=== PATIENT | male | born 1995 | race Caucasian/White ===

== ENCOUNTER 2017-06-13 17:16 | Emergency (ER) | payer OTHER ==
[2017-06-13] MEDS ORDERED: Bacitracin Oint 1 GM U/D Packet TOP ONE (18:21)
--- NOTE | 2017-06-13 18:45 | EDM.PDOC ---
ED HPI GENERAL MEDICAL PROBLEM - General Chief Complaint: Laceration Stated Complaint: LEFT BIG TOE Time Seen by Provider: 06/13/17 18:33 Source of Information: Reports: Patient, RN, RN Notes Reviewed History Limitations: Reports: No Limitations - History of Present Illness INITIAL COMMENTS - FREE TEXT/NARRATIVE: Pt presents to ER with c/o a laceration to the lateral pad to the left great toe. He states that at 0300 today he stepped on a piece of glass. He states he has been walking on the side of his foot. He states it does not feel like there is anything left in it. Patient states he had several vaccinations when entering the [employer] last year, which he believes included tetanus. Onset: Today, Sudden Onset Time: 03:00 Severity: Mild Improves with: Reports: None Worsens with: Reports: None Associated Symptoms: Reports: No Other Symptoms Left 1-Hallux Pain Score (Numeric/FACES): 5 - Related Data Allergies Allergy/AdvReac Type Severity Reaction Status Date / Time No Known Allergies Allergy Verified 08/06/13 00:48 Home Meds: Home Meds Albuterol [Proair HFA] 2 puff INH Q4HR PRN #1 inhaler 08/06/13 [Rx] Azithromycin [Zithromax] 250 mg PO DAILY 06/13/17 [History] predniSONE [predniSONE] 20 mg PO DAILY 06/13/17 [History] Past Medical History - Past Surgical History HEENT Surgical History: Reports: Tonsillectomy Social & Family History - Tobacco Use Smoking Status *Q: Never Smoker Second Hand Smoke Exposure: No - Caffeine Use Caffeine Use: Reports: Coffee, Energy Drinks, Tea - Alcohol Use Days Per Week of Alcohol Use: 1 Number of Drinks Per Day: 6 Total Drinks Per Week: 6 - Recreational Drug Use Recreational Drug Use: No ED ROS GENERAL - Review of Systems Review Of Systems: ROS reveals no pertinent complaints other than HPI. ED EXAM, SKIN/RASH Exam: See Below Exam Limited By: No Limitations General Appearance: Alert, WD/WN, No Apparent Distress Eye Exam: Bilateral Eye: Normal Inspection Ears: Normal External Exam, Hearing Grossly Normal Throat/Mouth: Normal Inspection, Normal Voice, No Airway Compromise Head: Atraumatic, Normocephalic Neck: Normal Inspection, Supple, Non-Tender, Full Range of Motion Respiratory/Chest: No Respiratory Distress, Lungs Clear, Normal Breath Sounds, No Accessory Muscle Use, Chest Non-Tender Cardiovascular: Normal Peripheral Pulses, Regular Rate, Rhythm, No Edema, No Gallop, No JVD, No Murmur, No Rub Peripheral Pulses: 2+: Radial (L), Radial (R), Dorsalis Pedis (L) GI/Abdominal: Normal Bowel Sounds, Soft, Non-Tender (Male) Exam: Deferred Rectal (Males) Exam: Deferred Back Exam: Normal Inspection, Full Range of Motion Extremities: Normal Inspection, Normal Range of Motion, Non-Tender, No Pedal Edema, Normal Capillary Refill Neurological: Alert, Oriented, Normal Cognition, Normal Gait, No Motor/Sensory Deficits Psychiatric: Normal Affect, Normal Mood Skin: Warm, Dry, Intact, Normal Color, No Rash Location, Skin: Upper Extremity, Left (Left great toe has a 1.5x1cm laceration to the lateral pad. Intact, not bleeding) Lymphatic: No Adenopathy Course - Vital Signs Last Recorded V/S: Last Vital Signs Temp 98.6 F 06/13/17 17:50 Pulse 75 06/13/17 17:50 Resp 18 06/13/17 17:50 BP 173/79 H 06/13/17 17:50 Pulse Ox 100 06/13/17 17:50 - Orders/Labs/Meds Meds: Medications Discontinued Medications Generic Name Dose Route Start Last Admin Trade Name Bela PRN Reason Stop Dose Admin Bacitracin 1 dose 06/13/17 18:21 06/13/17 18:34 Bacitracin Oint 1 Gm TOP 06/13/17 18:22 1 dose ONETIME ONE Administration Departure - Departure Time of Disposition: 18:46 Disposition: Home, Self-Care 01 Condition: Good Clinical Impression: Laceration - Discharge Information Instructions: Laceration Care, Adult, [id number] Forms: ED Department Discharge Additional Instructions: Watch for signs of infection Use over the counter antibiotic ointment to the area twice a day, cover with a bandaid. Keep clean and dry. Follow up with your primary care facility as needed.
== END 2017-06-13 18:52 | disposition home or self-care (01) ==
LOC: DL.ED 17:16
DX: S91.112A Laceration without foreign body of left great toe without damage to nail, initial encounter (principal); Z79.899 Other long term (current) drug therapy; W25.XXXA Contact with sharp glass, initial encounter
CPT/HCPCS: 99282

== ENCOUNTER 2019-09-04 09:39 | Emergency (ER) | payer OTHER ==
--- NOTE | 2019-09-04 10:20 | EDM.PDOC ---
ED HPI GENERAL MEDICAL PROBLEM - General Chief Complaint: Back Pain or Injury Stated Complaint: BACK PAIN Time Seen by Provider: 09/04/19 09:50 Source of Information: Reports: Patient, RN History Limitations: Reports: No Limitations - History of Present Illness INITIAL COMMENTS - FREE TEXT/NARRATIVE: 25-year-old male who presents to the ER with complaints of low back pain 1 day. Patient reports he was playing basketball after general yesterday and does not remember what happened. He reports waking up with lower back pain. Pain is rated about a 6/10 and describes as an ache. Pain is nonradiating. He hasn't tried anything for his symptoms. Admits to lower back pain intermittently when plays basketball denies any saddle anesthesia. Onset: Sudden Onset Date: 09/03/19 Duration: Day(s): (one) Location: Reports: Back Quality: Reports: Ache Severity: Moderate Improves with: Reports: None Worsens with: Reports: Movement Context: Reports: Exercise (playing basketball) Associated Symptoms: Reports: No Other Symptoms Treatments INTERVENTIONAL CARDIOLOGIST: Reports: Other (see below) (none) Lower Back Pain Score (Numeric/FACES): 6 - Related Data Allergies Allergy/AdvReac Type Severity Reaction Status Date / Time No Known Allergies Allergy Verified 09/04/19 09:45 Home Meds: Home Meds Albuterol [Proair HFA] 2 puff INH Q4HR PRN #1 inhaler 08/06/13 [Rx] Past Medical History HEENT History: Reports: Other (See Below) Other HEENT History: seasonal allergies Cardiovascular History: Reports: None Respiratory History: Reports: Asthma Gastrointestinal History: Reports: None Genitourinary History: Reports: None Musculoskeletal History: Reports: None Neurological History: Reports: None Psychiatric History: Reports: None Endocrine/Metabolic History: Reports: None Hematologic History: Reports: None Immunologic History: Reports: None Oncologic (Cancer) History: Reports: None Dermatologic History: Reports: None - Infectious Disease History Infectious Disease History: Reports: None - Past Surgical History Head Surgeries/Procedures: Reports: None HEENT Surgical History: Reports: Tonsillectomy Social & Family History - Family History Family Medical History: Noncontributory - Tobacco Use Smoking Status *Q: Never Smoker Second Hand Smoke Exposure: No - Caffeine Use Caffeine Use: Reports: Energy Drinks - Alcohol Use Days Per Week of Alcohol Use: 1 Number of Drinks Per Day: 6 Total Drinks Per Week: 6 - Recreational Drug Use Recreational Drug Use: No ED ROS GENERAL - Review of Systems Review Of Systems: Comprehensive ROS is negative, except as noted in HPI. ED EXAM,LOWER BACK PAIN/INJURY - Physical Exam Exam: See Below General Appearance: Alert, WD/WN, Mild Distress Back Exam: Normal Inspection, Decreased Range of Motion (due to pain), Muscle Spasm, Paraspinal Tenderness (noted bilaterally at L4 to L5) Extremities: Normal Inspection, Normal Range of Motion, Non-Tender Neurological: Alert, Normal Mood/Affect, Normal Dorsiflexion, CN II-XII Intact, Normal Plantar Flexion, Normal Gait, Normal Reflexes, No Motor/Sensory Deficits , Oriented x 3 Psychiatric: Normal Affect, Normal Mood Skin Exam: Warm, Dry, Intact, Normal Color, No Rash Lymphatic: No Adenopathy Course - Vital Signs Last Recorded V/S: Last Vital Signs Temp 97.4 F 09/04/19 09:46 Pulse 50 L 09/04/19 09:46 Resp 16 09/04/19 09:46 BP 162/82 H 09/04/19 09:46 Pulse Ox 100 09/04/19 09:46 - Re-Assessments/Exams Free Text/Narrative Re-Assessment/Exam: 09/04/19 10:33 Reviewed findings with patient. Rx for Flexeril send with patient. Tylenol/ ibuprofen with meals prn every 6 to 8 hours as needed for pain. Apply ice/heat intermittently. Stretch and rest. Follow up with PCP in one week if symptoms do not resolve for a PT referral. Patient and his boss verbalized understanding, Departure - Departure Time of Disposition: 10:20 Disposition: Home, Self-Care 01 Condition: Good, Fair Clinical Impression: Spasm of muscle of lower back - Discharge Information Instructions: Muscle Cramps and Spasms, [id number], Heat Therapy, Easy-to- Read Additional Instructions: Follow up with PCP if symptoms fail to improve in a week. Sepsis Event Note - Evaluation Sepsis Screening Result: No Definite Risk - Focused Exam Vital Signs: Vital Signs Temp Pulse Resp BP Pulse Ox 09/04/19 09:46 97.4 F 50 L 16 162/82 H 100 Date Exam was Performed: 09/04/19 Time Exam was Performed: 10:14
== END 2019-09-04 10:28 | disposition home or self-care (01) ==
LOC: DL.ED 09:39
DX: M62.830 Muscle spasm of back (principal); J45.909 Unspecified asthma, uncomplicated
CPT/HCPCS: 99283